=== PATIENT | female | born 1985 | race Caucasian/White ===

== ENCOUNTER 2019-06-12 06:07 | Inpatient (IN) | payer SELFPAY ==
--- NOTE | 2019-06-12 06:31 | EDM.PDOC ---
ED HPI GENERAL MEDICAL PROBLEM - General Chief Complaint: APARTMENT LOCATOR Problem Stated Complaint: 18 WKS , LOSING FLUID Time Seen by Provider: 06/12/19 06:26 Source of Information: Reports: Patient History Limitations: Reports: No Limitations - History of Present Illness INITIAL COMMENTS - FREE TEXT/NARRATIVE: 33-year-old female presents to the emergency room with a chief complaint of waking from sleep with a gush of fluids patient then called her APARTMENT LOCATOR physician and was instructed to put on a pad and come to the emergency room if the pad gets wet. Patient states she saturated 2 pads and came to the emergency room. Patient denies any bleeding, pain, and/or fever. The patient states she has minimal cramping and still feels movement at this time. Patient is approximately 18 weeks on Friday. She is G6, P4 Ab2. Patient is in no distress at this time and has no active bleeding or fluid loss. OB has been called for an AmniSure exam. Onset: Today Duration: Hour(s): (3), Resolved Prior to Arrival Location: Reports: Pelvis Quality: Reports: Other (MinimalCramps) Worsens with: Reports: None Associated Symptoms: Reports: No Other Symptoms. Denies: Confusion, Chest Pain , Cough, Diaphoresis, Fever/Chills, Headaches, Loss of Appetite, Nausea/Vomiting , Rash, Seizure, Shortness of Breath pelvic Pain Score (Numeric/FACES): 2 - Related Data Allergies Allergy/AdvReac Type Severity Reaction Status Date / Time No Known Allergies Allergy Verified 06/12/19 12:05 Home Meds: Home Meds Lysine 1,000 mg PO DAILY 06/12/19 [History] Mv-Mn/Iron/FA/Herbal/Digestive [ One Tablet] 1 tab PO DAILY 06/12/19 [ History] Past Medical History HEENT History: Reports: None Cardiovascular History: Reports: None Respiratory History: Reports: None Gastrointestinal History: Reports: None Genitourinary History: Reports: None APARTMENT LOCATOR History: Reports: Musculoskeletal History: Reports: None Neurological History: Reports: None Psychiatric History: Reports: None Endocrine/Metabolic History: Reports: None Hematologic History: Reports: None Immunologic History: Reports: None Oncologic (Cancer) History: Reports: None Dermatologic History: Reports: None - Past Surgical History Head Surgeries/Procedures: Reports: None Social & Family History - Family History Family Medical History: Noncontributory - Tobacco Use Smoking Status *Q: Never Smoker - Recreational Drug Use Recreational Drug Use: No ED ROS GENERAL - Review of Systems Review Of Systems: See Below Constitutional: Reports: No Symptoms. Denies: Fever, Chills, Malaise, Weakness , Fatigue, Night Sweats, Diaphoresis, Decreased Appetite HEENT: Reports: No Symptoms. Denies: Contact Lenses, Dental Pain, Ear Discharge , Eye Discharge, Eye Pain, Glasses, Hearing Loss Respiratory: Reports: No Symptoms. Denies: Shortness of Breath, Wheezing, Pleuritic Chest Pain, Cough, Sputum, Hemoptysis Cardiovascular: Reports: No Symptoms. Denies: Chest Pain, Blood Pressure Problem, Dyspnea on Exertion, Edema, Lightheadedness Endocrine: Reports: No Symptoms. Denies: Fatigue, High Glucose, Low Glucose GI/Abdominal: Reports: No Symptoms. Denies: Abdominal Pain, Anorexia, Black Stool, Diarrhea, Decreased Appetite, Flatus, Hematemesis, Nausea, Stool Incontinence : Reports: No Symptoms. Denies: Discharge Musculoskeletal: Reports: No Symptoms. Denies: Neck Pain, Shoulder Pain Skin: Reports: No Symptoms, Cyanosis, Jaundice Neurological: Reports: No Symptoms. Denies: Confusion, Dizziness, Pre-Existing Deficit, Seizure Psychiatric: Reports: No Symptoms. Denies: Agitation, Anxiety, Confusion Hematologic/Lymphatic: Reports: No Symptoms. Denies: Anemia, Easy Bleeding Immunologic: Reports: No Symptoms. Denies: Anaphylaxis, Food Allergy, Seasonal Allergy, Grass Allergy ED EXAM - Physical Exam Exam: See Below Text/Narrative:: 33-year-old female results show white count of 12 H&H is normal. She is positive for membranes being ruptured. At this time she is still an ultrasound Exam Limited By: No Limitations General Appearance: Alert, WD/WN, No Apparent Distress, Mild Distress, Moderate Distress, Cachetic Eye Exam: Bilateral Eye: Normal Fundi, Normal Inspection Ears: Normal External Exam, Normal Canal, Normal TMs Nose: Normal Inspection, Normal Mucosa Throat/Mouth: Normal Inspection, Normal Lips, Normal Teeth, Normal Oropharynx, Normal Voice Head: Atraumatic, Normocephalic Neck: Normal Inspection, Supple, Non-Tender Respiratory/Chest: No Respiratory Distress, Lungs Clear, Normal Breath Sounds, No Accessory Muscle Use, Chest Non-Tender Cardiovascular: Normal Peripheral Pulses, Regular Rate, Rhythm, No JVD, No Murmur, No Rub GI/Abdominal Exam: Normal Bowel Sounds, Soft, Non-Tender, No Organomegaly, No Distention, No Abnormal Bruit Back Exam: Normal Inspection, Full Range of Motion Extremities: Normal Inspection, Normal Range of Motion, No Pedal Edema, Normal Capillary Refill Neurological: Alert, Oriented, CN II-XII Intact, Normal Reflexes, No Motor/ Sensory Deficits Psychiatric: Normal Affect, Normal Mood Skin Exam: Warm, Dry, Intact, Normal Color Lymphatic: No Adenopathy Course - Vital Signs Text/Narrative:: Patient's ultrasound shows a 17-week 2-day fetus with a heart rate of 148. Amniotic fluid index is low at 8.6. Patient is in no acute pain at this time. Dr. Boucher [facility] on-call was called she will be evaluating the patient for possible admission. I will discuss this with the patient. Last Recorded V/S: Last Vital Signs Temp 96.9 F 06/12/19 16:00 Pulse 81 06/12/19 16:00 Resp 15 06/12/19 16:00 BP 114/65 06/12/19 16:00 Pulse Ox 97 06/12/19 16:00 - Orders/Labs/Meds Orders: Active Orders 24 hr Category Date Time Status Sodium Chloride 0.9% [Normal Saline] 1,000 ml Med 06/12/19 08:00 Active IV ASDIRECTED Medication Orders Sodium Chloride (Normal Saline) 1,000 mls @ 125 mls/hr IV ASDIRECTED [facility] Last Admin: 06/12/19 08:26 Dose: 125 mls/hr Lactated Ringer's (Ringers, Lactated) 1,000 mls @ 125 mls/hr IV ASDIRECTED [facility] Erythromycin Lactobionate 500 (mg/ Sodium Chloride) 100 mls @ 100 mls/hr IV Q6H [facility] Last Admin: 06/12/19 15:38 Dose: 100 mls/hr Infusion: 06/12/19 10:50 Dose: 100 mls/hr Admin: 06/12/19 09:50 Dose: 100 mls/hr Ampicillin Sodium 1 gm/ Sodium (Chloride) 50 mls @ 100 mls/hr IV Q6H [facility] Last Admin: 06/12/19 17:44 Dose: 100 mls/hr Infusion: 06/12/19 12:12 Dose: 100 mls/hr Admin: 06/12/19 11:42 Dose: 100 mls/hr Prenat Multivit/[place]/Iron/Folic Ac ( Mtr) 1 each PO DAILY [facility] Last Admin: 06/12/19 10:23 Dose: 1 each Sodium Chloride (Saline Flush) 10 ml FLUSH ASDIRECTED PRN PRN Reason: Keep Vein Open Sodium Chloride (Saline Flush) 2.5 ml FLUSH ASDIRECTED PRN PRN Reason: Keep Vein Open Labs: Laboratory Tests 06/12/19 06/12/19 06/12/19 Range/Units 06:30 06:35 06:35 WBC 12.98 H (4.0-11.0) K/uL RBC 3.82 L (4.30-5.90) M/uL Hgb 11.2 L (12.0-16.0) g/dL Hct 34.1 L (36.0-46.0) % MCV 89.3 (80.0-98.0) fL MCH 29.3 (27.0-32.0) pg MCHC 32.8 (31.0-37.0) g/dL RDW Std Deviation 43.9 (28.0-62.0) fl RDW Coeff of Bia 13 (11.0-15.0) % Plt Count 173 (150-400) K/uL MPV 9.70 (7.40-12.00) fL Neut % (Auto) 87.4 H (48.0-80.0) % Lymph % (Auto) 8.8 L (16.0-40.0) % [place] % (Auto) 3.4 (0.0-15.0) % Eos % (Auto) 0.2 (0.0-7.0) % Baso % (Auto) 0.2 (0.0-1.5) % Neut # (Auto) 11.4 H (1.4-5.7) K/uL Lymph # (Auto) 1.1 (0.6-2.4) K/uL [place] # (Auto) 0.4 (0.0-0.8) K/uL Eos # (Auto) 0.0 (0.0-0.7) K/uL Baso # (Auto) 0.0 (0.0-0.1) K/uL Nucleated RBC % 0.0 /100WBC Nucleated RBCs # 0 K/uL Sodium 140 (136-145) mmol/L Potassium 3.5 (3.5-5.1) mmol/L Chloride 105 (98-107) mmol/L Carbon Dioxide 23.4 (21.0-32.0) mmol/L BUN 6 L (7.0-18.0) mg/dL Creatinine 0.5 L (0.6-1.0) mg/dL Est Cr Clr Drug Dosing 129.91 mL/min Estimated GFR (MDRD) > 60.0 ml/min Glucose 78 (74-106) mg/dL Calcium 8.6 (8.5-10.1) mg/dL Total Bilirubin 0.3 (0.2-1.0) mg/dL AST 15 (15-37) IU/L ALT 29 (14-63) IU/L Alkaline Phosphatase 60 (46-116) U/L Total Protein 6.9 (6.4-8.2) g/dL Albumin 2.8 L (3.4-5.0) g/dL Globulin 4.1 H (2.6-4.0) g/dL Albumin/Globulin Ratio 0.7 L (0.9-1.6) HCG, Quant mIU/mL Urine Color Urine Appearance Urine pH (5.0-8.0) Ur Specific [place] (1.001-1.035) Urine Protein (NEGATIVE) mg/dL Urine Glucose (UA) (NEGATIVE) mg/dL Urine Ketones (NEGATIVE) mg/dL Urine Occult Blood (NEGATIVE) Urine Nitrite (NEGATIVE) Urine Bilirubin (NEGATIVE) Urine Urobilinogen (<2.0) EU/dL Ur Leukocyte Esterase (NEGATIVE) Urine RBC (0-2/HPF) Urine WBC (0-5/HPF) Ur Epithelial Cells (NONE-FEW) Urine Bacteria (NEGATIVE) Membrane Rupture POSITIVE Mila species DNA (NEGATIVE) Gardnerella DNA Probe (NEGATIVE) Trichomonas DNA Probe (NEGATIVE) Blood Type 06/12/19 06/12/19 06/12/19 Range/Units 06:35 06:35 08:05 WBC (4.0-11.0) K/uL RBC (4.30-5.90) M/uL Hgb (12.0-16.0) g/dL Hct (36.0-46.0) % MCV (80.0-98.0) fL MCH (27.0-32.0) pg MCHC (31.0-37.0) g/dL RDW Std Deviation (28.0-62.0) fl RDW Coeff of Bia (11.0-15.0) % Plt Count (150-400) K/uL MPV (7.40-12.00) fL Neut % (Auto) (48.0-80.0) % Lymph % (Auto) (16.0-40.0) % [place] % (Auto) (0.0-15.0) % Eos % (Auto) (0.0-7.0) % Baso % (Auto) (0.0-1.5) % Neut # (Auto) (1.4-5.7) K/uL Lymph # (Auto) (0.6-2.4) K/uL [place] # (Auto) (0.0-0.8) K/uL Eos # (Auto) (0.0-0.7) K/uL Baso # (Auto) (0.0-0.1) K/uL Nucleated RBC % /100WBC Nucleated RBCs # K/uL Sodium (136-145) mmol/L Potassium (3.5-5.1) mmol/L Chloride (98-107) mmol/L Carbon Dioxide (21.0-32.0) mmol/L BUN (7.0-18.0) mg/dL Creatinine (0.6-1.0) mg/dL Est Cr Clr Drug Dosing mL/min Estimated GFR (MDRD) ml/min Glucose (74-106) mg/dL Calcium (8.5-10.1) mg/dL Total Bilirubin (0.2-1.0) mg/dL AST (15-37) IU/L ALT (14-63) IU/L Alkaline Phosphatase (46-116) U/L Total Protein (6.4-8.2) g/dL Albumin (3.4-5.0) g/dL Globulin (2.6-4.0) g/dL Albumin/Globulin Ratio (0.9-1.6) HCG, Quant 15064.0 mIU/mL Urine Color Urine Appearance Urine pH (5.0-8.0) Ur Specific [place] (1.001-1.035) Urine Protein (NEGATIVE) mg/dL Urine Glucose (UA) (NEGATIVE) mg/dL Urine Ketones (NEGATIVE) mg/dL Urine Occult Blood (NEGATIVE) Urine Nitrite (NEGATIVE) Urine Bilirubin (NEGATIVE) Urine Urobilinogen (<2.0) EU/dL Ur Leukocyte Esterase (NEGATIVE) Urine RBC (0-2/HPF) Urine WBC (0-5/HPF) Ur Epithelial Cells (NONE-FEW) Urine Bacteria (NEGATIVE) Membrane Rupture Mila species DNA NEGATIVE (NEGATIVE) Gard[place]rella DNA Probe NEGATIVE (NEGATIVE) Trichomonas DNA Probe NEGATIVE (NEGATIVE) Blood Type A NEGATIVE 06/12/19 Range/Units 08:22 WBC (4.0-11.0) K/uL RBC (4.30-5.90) M/uL Hgb (12.0-16.0) g/dL Hct (36.0-46.0) % MCV (80.0-98.0) fL MCH (27.0-32.0) pg MCHC (31.0-37.0) g/dL RDW Std Deviation (28.0-62.0) fl RDW Coeff of Bia (11.0-15.0) % Plt Count (150-400) K/uL MPV (7.40-12.00) fL Neut % (Auto) (48.0-80.0) % Lymph % (Auto) (16.0-40.0) % [place] % (Auto) (0.0-15.0) % Eos % (Auto) (0.0-7.0) % Baso % (Auto) (0.0-1.5) % Neut # (Auto) (1.4-5.7) K/uL Lymph # (Auto) (0.6-2.4) K/uL [place] # (Auto) (0.0-0.8) K/uL Eos # (Auto) (0.0-0.7) K/uL Baso # (Auto) (0.0-0.1) K/uL Nucleated RBC % /100WBC Nucleated RBCs # K/uL Sodium (136-145) mmol/L Potassium (3.5-5.1) mmol/L Chloride (98-107) mmol/L Carbon Dioxide (21.0-32.0) mmol/L BUN (7.0-18.0) mg/dL Creatinine (0.6-1.0) mg/dL Est Cr Clr Drug Dosing mL/min Estimated GFR (MDRD) ml/min Glucose (74-106) mg/dL Calcium (8.5-10.1) mg/dL Total Bilirubin (0.2-1.0) mg/dL AST (15-37) IU/L ALT (14-63) IU/L Alkaline Phosphatase (46-116) U/L Total Protein (6.4-8.2) g/dL Albumin (3.4-5.0) g/dL Globulin (2.6-4.0) g/dL Albumin/Globulin Ratio (0.9-1.6) HCG, Quant mIU/mL Urine Color YELLOW Urine Appearance CLEAR Urine pH 8.0 (5.0-8.0) Ur Specific [place] 1.015 (1.001-1.035) Urine Protein NEGATIVE (NEGATIVE) mg/dL Urine Glucose (UA) NEGATIVE (NEGATIVE) mg/dL Urine Ketones NEGATIVE (NEGATIVE) mg/dL Urine Occult Blood NEGATIVE (NEGATIVE) Urine Nitrite NEGATIVE (NEGATIVE) Urine Bilirubin NEGATIVE (NEGATIVE) Urine Urobilinogen 0.2 (<2.0) EU/dL Ur Leukocyte Esterase NEGATIVE (NEGATIVE) Urine RBC NONE SEEN (0-2/HPF) Urine WBC NONE SEEN (0-5/HPF) Ur Epithelial Cells RARE (NONE-FEW) Urine Bacteria NOT SEEN (NEGATIVE) Membrane Rupture Mila species DNA (NEGATIVE) [place] DNA Probe (NEGATIVE) Trichomonas DNA Probe (NEGATIVE) Blood Type Meds: Medications Generic Name Dose Route Start Last Admin Trade Name Freq PRN Reason Stop Dose Admin Sodium Chloride 1,000 mls @ 125 mls/hr 06/12/19 08:00 06/12/19 08:26 Normal Saline IV 125 mls/hr ASDIRECTED [facility] Administration Lactated Ringer's 1,000 mls @ 125 mls/hr 06/12/19 09:00 Ringers, Lactated IV ASDIRECTED [facility] Erythromycin Lactobionate 500 100 mls @ 100 mls/hr 06/12/19 09:30 06/12/19 15 :38 mg/ Sodium Chloride IV 100 mls/hr Q6H [facility] Administration Ampicillin Sodium 1 gm/ Sodium 50 mls @ 100 mls/hr 06/12/19 11:00 06/12/19 17 :44 Chloride IV 100 mls/hr Q6H [facility] Administration Prenat Multivit/Patient Resource Coordinator/Iron/Folic Ac 1 each 06/12/19 09:00 06/12/19 10:23 Mtr PO 1 each DAILY [facility] Administration Sodium Chloride 10 ml 06/12/19 08:56 Saline Flush FLUSH ASDIRECTED PRN Keep Vein Open Sodium Chloride 2.5 ml 06/12/19 08:56 Saline Flush FLUSH ASDIRECTED PRN Keep Vein Open Discontinued Medications Generic Name Dose Route Start Last Admin Trade Name Freq PRN Reason Stop Dose Admin Cefazolin Sodium/Dextrose 1 gm 50 mls @ 100 mls/hr 06/12/19 07:50 06/12/19 08 :26 / Premix IV 06/12/19 08:19 100 mls/hr ONETIME ONE Administration Ampicillin Sodium 1 gm/ Sodium 50 mls @ 100 mls/hr 06/12/19 09:00 06/12/19 11 :43 Chloride IV Not Given Q6H [facility] Erythromycin Lactobionate 500 100 mls @ 100 mls/hr 06/12/19 09:00 06/12/19 11 :44 mg/ Sodium Chloride IV Not Given Q6HR [facility] Departure - Departure Time of Disposition: 09:20 Disposition: Admitted As Inpatient 64 Condition: Fair Clinical Impression: Threatened - Discharge Information Sepsis Event Note - Evaluation Sepsis Screening Result: No Definite Risk - Focused Exam Vital Signs: Vital Signs Temp Pulse Resp BP Pulse Ox 06/12/19 08:31 98.0 F 81 18 108/40 L 98 Date Exam was Performed: 06/12/19 Time Exam was Performed: 19:17 - My Orders Last 24 Hours: My Active Orders 06/12/19 08:00 Sodium Chloride 0.9% [Normal Saline] 1,000 ml IV ASDIRECTED - Assessment/Plan Last 24 Hours: My Active Orders 06/12/19 08:00 Sodium Chloride 0.9% [Normal Saline] 1,000 ml IV ASDIRECTED
[2019-06-12 07:22] LABS: BLOOD UREA NITROGEN,BUN 6 mg/dL (7.0-18.0); CARBON DIOXIDE,CO2 23.4 mmol/L (21.0-32.0); CHLORIDE,CL 105 mmol/L (98-107); GLUCOSE RANDOM 78 mg/dL (74-106); POTASSIUM,K 3.5 mmol/L (3.5-5.1); SODIUM,NA 140 mmol/L (136-145)
--- NOTE | 2019-06-12 07:28 | US ---
Limited obstetrical ultrasound: Multiple real-time images were obtained transabdominally. Comparison: No previous study for current . Dates: Current ultrasound: [facility] 11/14/19, gestational age 17 weeks 6 days Single intrauterine fetus is seen. Amniotic fluid: GM 8.7 cm Heart rate: 148 bpm Placenta: Complete placenta previa Impression: 1. Single intrauterine fetus. Dates as noted above. 2. Amniotic fluid index of 8.7 cm which is low normal. 3. Complete placenta previa Diagnostic code #3 This report was dictated in [place] Standard Time
[2019-06-12] MEDS ORDERED: ceFAZolin 1 GM in Premix Bag 1 BAG IV ONE (07:50)
[2019-06-12] MEDS: Sodium Chloride 0.9% 1,000 ML IV SCH ×2 (08:26→21:09)
[2019-06-12] MEDS ORDERED: Sodium Chloride 0.9% 2.5 ML Syringe FLUSH PRN (08:56)
[2019-06-12] MEDS ORDERED: Sodium Chloride 0.9% 10 ML Syringe FLUSH PRN (08:56)
[2019-06-12] MEDS ORDERED: Lactated Ringers 1,000 ML IV SCH (09:00)
[2019-06-12] MEDS ORDERED: Ampicillin 1 GM in Sodium Chloride 0.9% 50 ML IV SCH (09:00)
[2019-06-12] MEDS: Prenatal Multivitamin and Multimineral with Iron Tab PO SCH (10:23)
[2019-06-12] MEDS: Ampicillin 1 GM in Sodium Chloride 0.9% 50 ML IV SCH ×3 (11:42→23:02)
[2019-06-13] MEDS: Ampicillin 1 GM in Sodium Chloride 0.9% 50 ML IV SCH ×4 (05:14→22:48)
[2019-06-13] MEDS: Sodium Chloride 0.9% 1,000 ML IV SCH ×3 (05:56→21:16)
[2019-06-13] MEDS: Prenatal Multivitamin and Multimineral with Iron Tab PO SCH (09:26)
[2019-06-13] MEDS ORDERED: Docusate Sodium 100 MG Cap PO PRN (09:45)
--- NOTE | 2019-06-13 09:50 | PCM.PN ---
- General Info Date of Service: 06/13/19 Subjective Update: Still leaking small amount of fluid, occasional cramping when she turns on her side. Denies any vaginal bleeding. Denies chills or myalgia Functional Status: Reports: Pain Controlled, Tolerating Diet, Urinating - Review of Systems General: Reports: No Symptoms HEENT: Reports: No Symptoms Pulmonary: Reports: No Symptoms Cardiovascular: Reports: No Symptoms Gastrointestinal: Reports: No Symptoms Genitourinary: Reports: No Symptoms Musculoskeletal: Reports: No Symptoms Skin: Reports: No Symptoms Neurological: Reports: No Symptoms Psychiatric: Reports: No Symptoms - Patient Data Vitals - Most Recent: Last Vital Signs Temp 36.6 C 06/13/19 04:30 Pulse 83 06/13/19 04:30 Resp 18 06/13/19 04:30 BP 112/69 06/13/19 04:30 Pulse Ox 96 06/13/19 04:30 Weight - Most Recent: 73.936 kg I&O - Last 24 Hours: Intake & Output 06/12/19 06/13/19 06/13/19 22:59 06:59 14:59 Intake Total 915 2347 Output Total 1425 425 600 Balance -510 1922 -600 Lab Results Last 24 Hours: Laboratory Results - last 24 hr 06/13/19 Range/Units 09:22 WBC 12.51 H (4.0-11.0) K/uL RBC 3.45 L (4.30-5.90) M/uL Hgb 10.3 L (12.0-16.0) g/dL Hct 31.2 L (36.0-46.0) % MCV 90.4 (80.0-98.0) fL MCH 29.9 (27.0-32.0) pg MCHC 33.0 (31.0-37.0) g/dL RDW Std Deviation 45.3 (28.0-62.0) fl RDW Coeff of Bia 14 (11.0-15.0) % Plt Count 168 (150-400) K/uL MPV 9.80 (7.40-12.00) fL Neut % (Auto) 84.9 H (48.0-80.0) % Lymph % (Auto) 10.8 L (16.0-40.0) % [place] % (Auto) 3.8 (0.0-15.0) % Eos % (Auto) 0.4 (0.0-7.0) % Baso % (Auto) 0.1 (0.0-1.5) % Neut # (Auto) 10.6 H (1.4-5.7) K/uL Lymph # (Auto) 1.4 (0.6-2.4) K/uL [place] # (Auto) 0.5 (0.0-0.8) K/uL Eos # (Auto) 0.1 (0.0-0.7) K/uL Baso # (Auto) 0.0 (0.0-0.1) K/uL Nucleated RBC % 0.0 /100WBC Nucleated RBCs # 0 K/uL Med Orders - Current: Current Medications Docusate Sodium (Colace) 100 mg PO BID PRN PRN Reason: Constipation Ferrous Sulfate (Ferrous Sulfate) 300 mg PO DAILY [facility] Sodium Chloride (Normal Saline) 1,000 mls @ 125 mls/hr IV ASDIRECTED [facility] Last Admin: 06/13/19 05:56 Dose: 125 mls/hr Lactated Ringer's (Ringers, Lactated) 1,000 mls @ 125 mls/hr IV ASDIRECTED [facility] Erythromycin Lactobionate 500 (mg/ Sodium Chloride) 100 mls @ 100 mls/hr IV Q6H [facility] Last Admin: 06/13/19 09:29 Dose: 100 mls/hr Ampicillin Sodium 1 gm/ Sodium (Chloride) 50 mls @ 100 mls/hr IV Q6H [facility] Last Admin: 06/13/19 05:14 Dose: 100 mls/hr Prenat Multivit/[place]/Iron/Folic Ac ( Mtr) 1 each PO DAILY [facility] Last Admin: 06/13/19 09:26 Dose: 1 each Sodium Chloride (Saline Flush) 10 ml FLUSH ASDIRECTED PRN PRN Reason: Keep Vein Open Sodium Chloride (Saline Flush) 2.5 ml FLUSH ASDIRECTED PRN PRN Reason: Keep Vein Open Discontinued Medications Cefazolin Sodium/Dextrose 1 gm (/ Premix) 50 mls @ 100 mls/hr IV ONETIME ONE Stop: 06/12/19 08:19 Last Admin: 06/12/19 08:26 Dose: 100 mls/hr Ampicillin Sodium 1 gm/ Sodium (Chloride) 50 mls @ 100 mls/hr IV Q6H [facility] Last Admin: 06/12/19 11:43 Dose: Not Given Erythromycin Lactobionate 500 (mg/ Sodium Chloride) 100 mls @ 100 mls/hr IV Q6HR [facility] Last Admin: 06/12/19 11:44 Dose: Not Given - Exam General: Alert HEENT: Pupils Equal, Pupils Reactive, EOMI, Mucous Membr. Moist/[place] Neck: Supple Lungs: Clear to Auscultation, Normal Respiratory Effort Cardiovascular: Regular Rate, Regular Rhythm GI/Abdominal Exam: Soft, Non-Tender, Other (uterine fundus U-2 non tender) Extremities: Normal Inspection, Non-Tender, No Pedal Edema Sepsis Event Note - Evaluation Sepsis Screening Result: No Definite Risk - Focused Exam Vital Signs: Vital Signs Temp Pulse Resp BP Pulse Ox 06/13/19 04:30 36.6 C 83 18 112/69 96 Date Exam was Performed: 06/13/19 Time Exam was Performed: 09:47 - Problem List & Annotations (1) premature rupture of membranes (PPROM) with unknown onset of labor SNOMED Code(s): 73983963336489211 Code(s): O42.919 - PRETRM ALPHONSO ROM, UNSP TIME BETW RUPT AND ONST LABR, UNSP TRI Status: Acute Current Visit: Yes (2) Threatened SNOMED Code(s): 80983102 Code(s): O20.0 - THREATENED Status: Acute Current Visit: Yes - Problem List Review Problem List Initiated/Reviewed/Updated: Yes - My Orders Last 24 Hours: My Active Orders 06/12/19 08:56 Bedrest Bathroom Privileges [RC] ASDIRECTED Sodium Chloride 0.9% [Saline Flush] 10 ml FLUSH ASDIRECTED PRN Sodium Chloride 0.9% [Saline Flush] 2.5 ml FLUSH ASDIRECTED PRN Saline Lock Insert [OM.PC] Routine Sequential Compression Device [OM.PC] Routine 06/12/19 08:58 Antiembolic Devices [RC] PER UNIT ROUTINE Monitoring [RC] DAILY 06/12/19 09:00 Lactated Ringers [Ringers, Lactated] 1,000 ml IV ASDIRECTED Vit/FA/Fe Fumarate/Se [ MTR] 1 each PO DAILY 06/12/19 09:30 Erythromycin Lactobionate [Erythrocin Lactobionate] 500 mg Sodium Chloride 0.9 % [Normal Saline] 100 ml IV Q6H 06/12/19 11:00 Ampicillin 1 gm Sodium Chloride 0.9% [Normal Saline] 50 ml IV Q6H 06/12/19 Lunch Regular Diet [DIET] 06/13/19 09:45 Docusate Sodium [Colace] 100 mg PO BID PRN 06/13/19 10:00 Ferrous Sulfate 300 mg PO DAILY 06/15/19 05:11 CBC WITH AUTO DIFF [HEME] AM - Assessment Assessment:: 18 weeks with PPROM with placenta previa afebrile, no signs of labor or infections at this time. Anemic on labs today. - Plan Plan:: Continue with IV antibiotics for 48 hours. Recheck CBC in am, discharge in am if stable to consult with MFM. Start iron for anemia, with colace if needed.
[2019-06-13] MEDS ORDERED: Ferrous Sulfate Liq 300 MG/5 ML Cup PO SCH (10:00)
[2019-06-14] MEDS: Ampicillin 1 GM in Sodium Chloride 0.9% 50 ML IV SCH (05:04)
[2019-06-14] MEDS: Sodium Chloride 0.9% 1,000 ML IV SCH (05:43)
--- NOTE | 2019-06-14 08:31 | HP ---
DATE OF : 1985 PRIMARY CARE PHYSICIAN: None PCP CHIEF COMPLAINT: Spontaneous rupture of membranes. HISTORY: This is a 33-year-old female, G6, P 3-0-2-3, at 17-6/7 weeks' gestation, EDC of 11/14/2019 by LMP consistent with a 13-week ultrasound. She presents having gotten up in the middle of the night with a gush of fluid. She put on a pad. She walked around. She continued to have fluid leakage. She has had no bleeding. No cramping or pain. No fevers or chills. No abnormal discharge prior to the leakage of fluid. She presented to the emergency room with findings of clear fluid. AmniSure was obtained and was positive. Ultrasound was obtained and showed a single intrauterine . Amniotic fluid of 8.7. Complete placenta previa. PAST MEDICAL HISTORY: Positive for gastritis, cholelithiasis, and cold sores. PAST SURGICAL HISTORY: Vaginal surgery for removal of a sheath. She had an abnormal Pap in 2010 that did not require treatment. ALLERGIES: None known. MEDICATIONS: vitamins and lysine. SOCIAL HISTORY: She is , sexually active. She denies use of tobacco, alcohol, or street drugs. FAMILY HISTORY: Her father has hypertension. Paternal grandfather with emphysema and type 2 diabetes. Paternal grandmother with breast cancer. OB HISTORY: In 2010, she had a 6-pound 6-ounce female, vaginal delivery. In 2013, she had a 6-pound 7-ounce male, vaginal delivery. In 2015, she had an 8-pound 3-ounce female, vaginal delivery. She had spontaneous without D and C in October of 2018 and January of 2019. Her LMP for this is February 07, 2019, dating based on ultrasound on 05/10/2019, giving a confirming EDC of 11/14/2019. labs include blood type A negative, Rubella immune, RPR negative, hepatitis B negative. REVIEW OF SYSTEMS: HEENT: Negative for headache or visual changes. CHEST: Negative for shortness of breath, chest pain. DERMATOLOGIC: Negative. RHEUMATOLOGIC: Negative. GASTROINTESTINAL: Negative. GENITOURINARY: Negative except for HPI. PHYSICAL EXAMINATION: VITAL SIGNS: Temperature is 36.3, pulse is 74, blood pressure 124/63, respiratory rate of 16, O2 saturation 98%. GENERAL: She is alert and oriented. She is in no acute distress. NECK: Supple without lymphadenopathy or thyromegaly. LUNGS: Clear bilaterally. CARDIOVASCULAR: Regular rate without murmur. ABDOMEN: Soft, gravid, and nontender. Fundus is 2 cm below the umbilicus, is nontender. EXTREMITIES: Show no edema. GENITOURINARY: External genitalia appears normal. Sterile speculum exam reveals clear fluid in the vagina. The cervix is visually closed. There is no bleeding. ASSESSMENT: A 17-6/7 weeks' intrauterine with premature rupture of membranes. I did discuss the implications of premature rupture of membranes at this time of including lack of amniotic fluid causing pulmonary hypoplasia, risk of continuing with with an extremely delivery with a child with long-term disabilities, and risk of maternal sepsis. Options are: 1. Expectant management, as long as the fetus is viable, and she is afebrile. This would include IV antibiotics with erythromycin and ampicillin and follow up with Maternal- Medicine on Friday, which is her preference. 2. Next option would be induction of labor, which is somewhat more complicated related to her placenta previa. 3. The final option, which she completely declines, would be dilation and evacuation, which would have to be done elsewhere, as that is not an acceptable procedure in our facility with a viable fetus. Understanding all these options, she does desire to proceed with inpatient admission with IV antibiotics, converting to oral antibiotics after 48 hours with Maternal- Medicine consultation on Friday. I did make contact with Dr. Vicente, and he agreed to see her on Friday with ultrasound and further counseling at that time. VASILIY / IMAN /[id number]
--- NOTE | 2019-06-14 08:49 | PCM.PN ---
- General Info Date of Service: 06/14/19 Functional Status: Reports: Tolerating Diet, Ambulating, Urinating, Other ( Denies fever and chills, no cramping or abdominal pain. ) - Review of Systems General: Reports: No Symptoms HEENT: Reports: No Symptoms Pulmonary: Reports: No Symptoms Cardiovascular: Reports: No Symptoms Gastrointestinal: Reports: No Symptoms Genitourinary: Reports: No Symptoms Musculoskeletal: Reports: No Symptoms Skin: Reports: No Symptoms Neurological: Reports: No Symptoms Psychiatric: Reports: No Symptoms - Patient Data Vitals - Most Recent: Last Vital Signs Temp 36.5 C 06/14/19 05:13 Pulse 69 06/14/19 05:13 Resp 16 06/14/19 05:13 BP 111/60 06/14/19 05:13 Pulse Ox 96 06/14/19 05:13 Weight - Most Recent: 163 lb I&O - Last 24 Hours: Intake & Output 06/13/19 06/14/19 06/14/19 22:59 06:59 14:59 Intake Total 1100 Output Total 1800 650 Balance -700 -650 Lab Results Last 24 Hours: Laboratory Results - last 24 hr 06/13/19 Range/Units 09:22 WBC 12.51 H (4.0-11.0) K/uL RBC 3.45 L (4.30-5.90) M/uL Hgb 10.3 L (12.0-16.0) g/dL Hct 31.2 L (36.0-46.0) % MCV 90.4 (80.0-98.0) fL MCH 29.9 (27.0-32.0) pg MCHC 33.0 (31.0-37.0) g/dL RDW Std Deviation 45.3 (28.0-62.0) fl RDW Coeff of Bia 14 (11.0-15.0) % Plt Count 168 (150-400) K/uL MPV 9.80 (7.40-12.00) fL Neut % (Auto) 84.9 H (48.0-80.0) % Lymph % (Auto) 10.8 L (16.0-40.0) % Archuleta % (Auto) 3.8 (0.0-15.0) % Eos % (Auto) 0.4 (0.0-7.0) % Baso % (Auto) 0.1 (0.0-1.5) % Neut # (Auto) 10.6 H (1.4-5.7) K/uL Lymph # (Auto) 1.4 (0.6-2.4) K/uL Archuleta # (Auto) 0.5 (0.0-0.8) K/uL Eos # (Auto) 0.1 (0.0-0.7) K/uL Baso # (Auto) 0.0 (0.0-0.1) K/uL Nucleated RBC % 0.0 /100WBC Nucleated RBCs # 0 K/uL Med Orders - Current: Current Medications Docusate Sodium (Colace) 100 mg PO BID PRN PRN Reason: Constipation Ferrous Sulfate (Ferrous Sulfate) 300 mg PO DAILY [facility] Last Admin: 06/13/19 11:11 Dose: 300 mg Sodium Chloride (Normal Saline) 1,000 mls @ 125 mls/hr IV ASDIRECTED [facility] Last Admin: 06/14/19 05:43 Dose: 125 mls/hr Lactated Ringer's (Ringers, Lactated) 1,000 mls @ 125 mls/hr IV ASDIRECTED [facility] Erythromycin Lactobionate 500 (mg/ Sodium Chloride) 100 mls @ 100 mls/hr IV Q6H [facility] Last Admin: 06/14/19 02:54 Dose: 100 mls/hr Ampicillin Sodium 1 gm/ Sodium (Chloride) 50 mls @ 100 mls/hr IV Q6H [facility] Last Admin: 06/14/19 05:04 Dose: 100 mls/hr Prenat Multivit/[place]/Iron/Folic Ac ( Mtr) 1 each PO DAILY [facility] Last Admin: 06/13/19 09:26 Dose: 1 each Sodium Chloride (Saline Flush) 10 ml FLUSH ASDIRECTED PRN PRN Reason: Keep Vein Open Sodium Chloride (Saline Flush) 2.5 ml FLUSH ASDIRECTED PRN PRN Reason: Keep Vein Open Discontinued Medications Cefazolin Sodium/Dextrose 1 gm (/ Premix) 50 mls @ 100 mls/hr IV ONETIME ONE Stop: 06/12/19 08:19 Last Admin: 06/12/19 08:26 Dose: 100 mls/hr Ampicillin Sodium 1 gm/ Sodium (Chloride) 50 mls @ 100 mls/hr IV Q6H [facility] Last Admin: 06/12/19 11:43 Dose: Not Given Erythromycin Lactobionate 500 (mg/ Sodium Chloride) 100 mls @ 100 mls/hr IV Q6HR [facility] Last Admin: 06/12/19 11:44 Dose: Not Given - Exam General: Alert, Oriented, Cooperative, No Acute Distress HEENT: Pupils Equal, Pupils Reactive Neck: Supple, Trachea Midline Lungs: Normal Respiratory Effort GI/Abdominal Exam: Normal Bowel Sounds, Soft, Non-Tender Back Exam: Normal Inspection, Full Range of Motion Extremities: Normal Inspection, Normal Range of Motion, Non-Tender, No Pedal Edema Skin: Warm, Dry, Intact Wound/Incisions: Healing Well Neurological: No New Focal Deficit Psy/Mental Status: Alert, Normal Affect, Normal Mood Sepsis Event Note - Evaluation Sepsis Screening Result: No Definite Risk - Focused Exam Vital Signs: Vital Signs Temp Pulse Resp BP Pulse Ox 06/14/19 05:13 36.5 C 69 16 111/60 96 Date Exam was Performed: 06/14/19 Time Exam was Performed: 08:45 - Problem List Review Problem List Initiated/Reviewed/Updated: Yes - Assessment Assessment:: 18 weeks with PPROM with placenta previa afebrile, HD3 with no signs of labor or infections at this time. - Plan Plan:: Completed IV antibiotics for 48 hours. Will start PO amoxicillin. WBC stable at 12.6. Start iron for anemia, with colace if needed. Discharge today for consult with M.
== END 2019-06-14 09:05 | disposition home or self-care (01) | DRG 833 ==
LOC: MW.ED 06:07 → MW.OB 08:36
PROVIDERS: ADMIT Obstetrics & Gynecology; ATTEND Obstetrics & Gynecology
DX: O20.0 Threatened abortion (principal); O44.02 Complete placenta previa NOS or without hemorrhage, second trimester; O42.912 Preterm premature rupture of membranes, unspecified as to length of time between rupture and onset of labor, second trimester; O99.012 Anemia complicating pregnancy, second trimester; D64.9 Anemia, unspecified; Z3A.17 17 weeks gestation of pregnancy
CPT/HCPCS: 36415; 76805; 76805-26; 80053; 81001; 84112; 84702; 85025; 86900; 86901; 87480; 87510; 87660; 96365; 99285-25; A9270-GY; J0290; J0690; J1364; J7030; J7050

== ENCOUNTER 2019-07-07 16:17 | Inpatient (IN) | payer SELFPAY ==
--- NOTE | 2019-07-07 17:11 | PCM.LDHP ---
L&D History of Present Illness - General Date of Service: 07/07/19 Admit Problem/Dx: Patient Status Order with Admit Dx/Problem 07/07/19 16:20 Patient Status [ADT] Routine Admission Diagnosis/Problem Admission Diagnosis/Problem - History of Present Illness Introduction:: HPI: 33yo at 21w3d with Hx of PPROM at 18wks presenting with cord prolapse. STEFAN 12/04/2019 by LMP confirmed by 13wk1d ultrasound. Patient has been expectantly managing at home, did not have signs of infection or labor, completed a course of latency antibiotics. 2 hours ago she called reporting she felt loop of cord in her vagina, having intermittent cramping. +FHR confirmed on bedside sono. OBHx: x3 at term, SAB x2 PMHx: None PSHx: removal of vaginal sheath SH: Denies alcohol, smoking or recreational drug use All: NKDA - Related Data Allergies/Adverse Reactions: Allergies Allergy/AdvReac Type Severity Reaction Status Date / Time No Known Allergies Allergy Verified 06/12/19 12:05 Home Medications: Home Meds Lysine 1,000 mg PO DAILY 06/12/19 [History] Mv-Mn/Iron/FA/Herbal/Digestive [ One Tablet] 1 tab PO DAILY 06/12/19 [ History] Amoxicillin 250 mg PO Q8HR 5 Days #15 capsule 06/14/19 [Rx] Ferrous Sulfate [Iron] 325 mg PO DAILY #30 tablet 06/14/19 [Rx] Past Medical History HEENT History: Reports: None Cardiovascular History: Reports: None Respiratory History: Reports: None Gastrointestinal History: Reports: None Other Gastrointestinal History: Gall stones Genitourinary History: Reports: None ART SPECIALIST History: Reports: Other OB/BYN History: extra vaginal sheath removed at age 16 Musculoskeletal History: Reports: None Neurological History: Reports: None Psychiatric History: Reports: None Endocrine/Metabolic History: Reports: None Hematologic History: Reports: None Immunologic History: Reports: None Oncologic (Cancer) History: Reports: None Dermatologic History: Reports: None - Infectious Disease History Infectious Disease History: Reports: Chicken Pox - Past Surgical History Head Surgeries/Procedures: Reports: None Social & Family History - Family History Family Medical History: Noncontributory - Caffeine Use Caffeine Use: Reports: None H&P Review of Systems - Review of Systems: Review Of Systems: See Below General: Reports: No Symptoms HEENT: Reports: No Symptoms Pulmonary: Reports: No Symptoms Cardiovascular: Reports: No Symptoms Gastrointestinal: Reports: No Symptoms Genitourinary: Reports: No Symptoms Musculoskeletal: Reports: No Symptoms Skin: Reports: No Symptoms Psychiatric: Reports: No Symptoms Neurological: Reports: No Symptoms Hematologic/Lymphatic: Reports: No Symptoms Immunologic: Reports: No Symptoms L&D Exam - Exam Exam: See Below - Vital Signs Weight: 161 lb - OB Specific Heart Tones: Present Presentation: Vertex - Exam General: Alert, Oriented, Cooperative Neck: Supple, Trachea Midline Lungs: Normal Respiratory Effort GI/Abdominal Exam: Soft, Non-Tender, No Organomegaly, No Distention Genitourinary: Normal external exam, Other (loop of cord from the cervix, no vaginal bleeding) Back Exam: Normal Inspection Extremities: Normal Inspection, Normal Range of Motion, Non-Tender, No Pedal Edema Skin: Warm, Dry, Intact Neurological: Cranial Nerves Intact Psychiatric: Alert, Normal Affect, Normal Mood Problem List Initiated/Reviewed/Updated: Yes Orders Last 24hrs: Active Orders 24 hr Category Date Time Status Patient Status [ADT] Routine ADT 07/07/19 16:20 Active Up ad Kinga [RC] ASDIRECTED Care 07/07/19 16:29 Active Vital Signs [RC] PER UNIT ROUTINE Care 07/07/19 16:29 Active Resuscitation Status Routine Resus Stat 07/07/19 16:29 Ordered Assessment/Plan Comment:: 33yo @21w3d with PPROM at 18wk presenting with cord prolapse. - Discussed with patient that although there is cardiac activity currently , with cord prolapse demise is inevitable. She is also having cervical dilation and signs of labor. Reviewed options of expectant management vs induction of labor, baby is not likely to reach viability and with increasing risk of infection, would advise induction of labor. She is tearful but agreeable to induction. Case reviewed with Ethics team Jhony Roque, who was agreeable with plan of care considering previable PPROM and natural labor has started. - admission labs: CBC, T&S, RPR - ancef 2g q8hr for infection prophylaxis - cytotec 800mcg vaginal now, 400mg q4hr - pain control: dilaudid IV/epidural PRN
[2019-07-07] MEDS ORDERED: Carboprost Tromethamine 250 MCG/1 ML Amp IM PRN (17:22)
[2019-07-07] MEDS ORDERED: Sodium Chloride 0.9% 10 ML Syringe FLUSH PRN (17:22)
[2019-07-07] MEDS ORDERED: Lidocaine 1% 50 ML MDV INJECT PRN (17:22)
[2019-07-07] MEDS ORDERED: Sodium Chloride 0.9% 10 ML SDV IV PRN (17:22)
[2019-07-07] MEDS ORDERED: Nalbuphine 10 MG/1 ML Vial IVPUSH PRN (17:22)
[2019-07-07] MEDS ORDERED: Methylergonovine 0.2 MG/1 ML Amp IM PRN (17:22)
[2019-07-07] MEDS ORDERED: Butorphanol 1 MG/ML SDV IVPUSH PRN (17:22)
[2019-07-07] MEDS ORDERED: Water For Irrigation,Sterile 1,000 ML Container IRR PRN (17:22)
[2019-07-07] MEDS ORDERED: Tranexamic Acid 1,000 MG in Sodium Chloride 0.9% 100 ML IV PRN (17:22)
[2019-07-07] MEDS ORDERED: Misoprostol 200 MCG Tab PO PRN (17:22)
[2019-07-07] MEDS ORDERED: Sodium Chloride 0.9% 2.5 ML Syringe FLUSH PRN (17:22)
[2019-07-07] MEDS ORDERED: Oxytocin/0.9 % Sodium Chloride 30 UNIT/500 ML BAG IV SCH (17:30)
[2019-07-07] MEDS ORDERED: Lactated Ringers 1,000 ML IV SCH (17:30)
[2019-07-07] MEDS ORDERED: Misoprostol 200 MCG Tab VAG ONE (17:30)
[2019-07-07] MEDS ORDERED: Morphine 4 MG/ML Syringe IVPUSH PRN (17:49)
[2019-07-07] MEDS: ceFAZolin 2 GM in Premix Bag 1 BAG IV SCH (18:28)
[2019-07-07] MEDS ORDERED: Ketorolac 30 MG/ML SDV IVPUSH PRN (20:30)
[2019-07-07] MEDS ORDERED: Misoprostol 200 MCG Tab VAG PRN (21:30)
[2019-07-07] MEDS ORDERED: Ibuprofen 400 MG Tab PO PRN (22:10)
[2019-07-07] MEDS ORDERED: Lanolin 100% Cream 7 GM Tube TOP PRN (22:10)
[2019-07-07] MEDS ORDERED: Acetaminophen 500 MG Tab PO PRN ×2 (22:10)
[2019-07-07] MEDS ORDERED: Benzocaine/Menthol 20%-0.5% Spray 78 GM Cannister TOP PRN (22:10)
[2019-07-07] MEDS ORDERED: Witch Hazel Medicated Pads 40/Jar TOP PRN (22:10)
[2019-07-07] MEDS ORDERED: Docusate Sodium 100 MG Cap PO PRN (22:10)
[2019-07-07] MEDS ORDERED: Bisacodyl 10 MG Supp RECTAL PRN (22:10)
[2019-07-07] MEDS ORDERED: Ibuprofen 800 MG Tab PO PRN (22:10)
--- NOTE | 2019-07-07 23:29 | OR ---
SURGEON: José Manuel Dangelo MD DATE OF PROCEDURE: 07/07/2019 INDICATION FOR PROCEDURE: A 33-year-old G6, P3-0-2-3 at 21 week and 4 days with history of premature rupture of membranes at 18 weeks, presenting with cord prolapse. The patient had been expectantly managing the . She received a course of latency antibiotics. Today patient called reporting she noticed a prolapsed cord from the vagina which was confirmed after admission. She was found to be 3cm dilated. heart rate was noted on ultrasound. Discussed with her that with prolapsed cord demise is inevitable and she likely is developing chorioamnionitis. Reviewed management options and advised induction of labor. She was agreeable, and Cytotec was placed for induction. She progressed with Cytotec and I was called by the patient's nurse that the baby had delivered. PREOPERATIVE DIAGNOSES: 1. premature rupture of membranes at 18 weeks. 2. Cord prolapse. POSTOPERATIVE DIAGNOSES: 1. premature rupture of membranes at 18 weeks. 2. Cord prolapse. 3. Breech presentation. 4. Intrauterine demise. PROCEDURE PERFORMED: Normal spontaneous vaginal delivery. ANESTHESIA: None. ESTIMATED BLOOD LOSS: 850 mL. FINDINGS: Cord prolapse from the cervix which was 3cm dilated. Delivery of male fetus, no cardiac activity after delivery. Breech presentation. DESCRIPTION OF PROCEDURE: Upon my arrival, the fetus was delivered spontaneously in breech presentation. Umbilical cord was clamped and cut by patient's nurse. The baby was born without cardiac activity. There was moderate bleeding, about 350 mL. Gentle traction was applied on the umbilical cord to attempt to remove the placenta, however, placenta was still attached and umbilical cord had avulsed. She was given 400 mcg of Cytotec vaginally. After 1 hour, with fundal massage the placenta delivered and was found to be intact with another 400 mL of blood clots. Bimanual massage was performed and the uterus was firm. She was given a dose of Methergine IM with improvement in bleeding. She declines further testing including autopsy and cytogenetics. She was given care instructions. TIN / IMAN /[id number] MTDD
[2019-07-08] MEDS: ceFAZolin 2 GM in Premix Bag 1 BAG IV SCH ×2 (02:11→10:11)
--- NOTE | 2019-07-08 09:06 | PCM.PNPP ---
- General Info Date of Service: 07/08/19 Functional Status: Reports: Pain Controlled, Tolerating Diet, Ambulating, Urinating, Other (Bleeding light) - Review of Systems General: Reports: No Symptoms HEENT: Reports: No Symptoms Pulmonary: Reports: No Symptoms Cardiovascular: Reports: No Symptoms Gastrointestinal: Reports: No Symptoms Genitourinary: Reports: No Symptoms Musculoskeletal: Reports: No Symptoms Skin: Reports: No Symptoms Neurological: Reports: No Symptoms Psychiatric: Reports: No Symptoms - Patient Data Vital Signs - Most Recent: Last Vital Signs Temp 36.7 C 07/08/19 03:35 Pulse 71 07/08/19 03:35 Resp 16 07/08/19 03:35 BP 88/50 L 07/08/19 03:35 Pulse Ox Weight - Most Recent: 161 lb Lab Results - Last 24 Hours: Laboratory Results - last 24 hr 07/07/19 07/07/19 07/08/19 Range/Units 17:45 17:45 05:15 WBC 12.11 H (4.0-11.0) K/uL RBC 4.07 L (4.30-5.90) M/uL Hgb 12.1 10.8 L (12.0-16.0) g/dL Hct 36.8 33.0 L (36.0-46.0) % MCV 90.4 (80.0-98.0) fL MCH 29.7 (27.0-32.0) pg MCHC 32.9 (31.0-37.0) g/dL RDW Std Deviation 44.6 (28.0-62.0) fl RDW Coeff of Bia 14 (11.0-15.0) % Plt Count 195 (150-400) K/uL MPV 10.30 (7.40-12.00) fL Nucleated RBC % 0.0 /100WBC Nucleated RBCs # 0 K/uL Blood Type A NEGATIVE Antibody Screen NEGATIVE Screen (NEGATIVE) RhIG Candidate? Rhogam Indicated 07/08/19 Range/Units 05:15 WBC (4.0-11.0) K/uL RBC (4.30-5.90) M/uL Hgb (12.0-16.0) g/dL Hct (36.0-46.0) % MCV (80.0-98.0) fL MCH (27.0-32.0) pg MCHC (31.0-37.0) g/dL RDW Std Deviation (28.0-62.0) fl RDW Coeff of Bia (11.0-15.0) % Plt Count (150-400) K/uL MPV (7.40-12.00) fL Nucleated RBC % /100WBC Nucleated RBCs # K/uL Blood Type Antibody Screen Screen NEGATIVE (NEGATIVE) RhIG Candidate? YES Rhogam Indicated YES, BABY RH UNKNOWN H Med Orders - Current: Current Medications Acetaminophen (Tylenol Extra Strength) 500 mg PO Q4H PRN PRN Reason: Pain Acetaminophen (Tylenol Extra Strength) 1,000 mg PO Q4H PRN PRN Reason: Pain Benzocaine/Menthol (Dermoplast Pain Relief 20%-0.5% Olga) 78 gm TOP ASDIRECTED PRN PRN Reason: Perineal Comfort Measure Bisacodyl (Dulcolax) 10 mg RECTAL ONETIME PRN PRN Reason: Constipation Carboprost Tromethamine (Hemabate Ds) 250 mcg IM ASDIRECTED PRN PRN Reason: Post Hemorrhage Docusate Sodium (Colace) 100 mg PO BID PRN PRN Reason: Constipation Emollient Ointment (Lansinoh Hpa) 0 gm TOP ASDIRECTED PRN PRN Reason: Sore Nipples Tranexamic Acid 1,000 mg/ (Sodium Chloride) 110 mls @ 660 mls/hr IV ONETIME PRN PRN Reason: Bleeding Lactated Ringer's (Ringers, Lactated) 1,000 mls @ 150 mls/hr IV ASDIRECTED [facility] Last Admin: 07/07/19 18:28 Dose: 150 mls/hr Oxytocin/Sodium Chloride (Oxytocin 30 Unit/500 Ml-Ns) 30 unit in 500 mls @ 500 mls/hr IV TITRATE [facility] Cefazolin Sodium/Dextrose 2 gm (/ Premix) 50 mls @ 100 mls/hr IV Q8H [facility] Last Admin: 07/08/19 02:11 Dose: 100 mls/hr Ibuprofen (Motrin) 400 mg PO Q4H PRN PRN Reason: Pain Ibuprofen (Motrin) 800 mg PO Q6H PRN PRN Reason: Pain Last Admin: 07/07/19 22:48 Dose: 800 mg Ketorolac Tromethamine (Toradol) 30 mg IVPUSH Q6H PRN PRN Reason: Pain Stop: 07/12/19 20:31 Lidocaine HCl (Xylocaine 1%) 50 ml INJECT ONETIME PRN PRN Reason: Laceration repair Methylergonovine Maleate (Methergine) 0.2 mg IM ASDIRECTED PRN PRN Reason: Post Hemorrhage Last Admin: 07/07/19 22:42 Dose: 0.2 mg Misoprostol (Cytotec) 400 mcg VAG Q4H PRN PRN Reason: Other Last Admin: 07/07/19 21:51 Dose: 400 mcg Misoprostol (Cytotec) 200 mcg PO ONETIME PRN PRN Reason: Post Hemorrhage Morphine Sulfate (Morphine) 2 mg IVPUSH Q2H PRN PRN Reason: Abdominal Pain Last Admin: 07/07/19 19:30 Dose: 2 mg Sodium Chloride (Saline Flush) 10 ml FLUSH ASDIRECTED PRN PRN Reason: Keep Vein Open Sodium Chloride (Saline Flush) 2.5 ml FLUSH ASDIRECTED PRN PRN Reason: Keep Vein Open Sodium Chloride (Normal Saline) 10 ml IV ASDIRECTED PRN PRN Reason: IV Use Sterile Water (Sterile Water For Irrigation) 1,000 ml IRR ASDIRECTED PRN PRN Reason: delivery Witch Jeaneth (Tucks) 1 pad TOP ASDIRECTED PRN PRN Reason: comfort care Discontinued Medications Butorphanol Tartrate (Stadol) 1 mg IVPUSH Q1H PRN PRN Reason: Pain Misoprostol (Cytotec) 800 mcg VAG ONETIME ONE Stop: 07/07/19 17:31 Last Admin: 07/07/19 18:26 Dose: 800 mcg Nalbuphine HCl (Nubain) 10 mg IVPUSH Q1H PRN PRN Reason: Pain (severe 7-10) - Interaction Support Person: - Recovery Exam Fundal Tone: Firm Fundal Level: At Umbilicus Fundal Placement: Midline Lochia Amount: Small Lochia Color: Rubra/Red Perineum Description: Intact, Minimal Bruising/Swelling Episiotomy/Laceration: None Bladder Status: Nonpalpable Urinary Elimination: Voided - Exam General: Alert, Oriented, Cooperative, No Acute Distress HEENT: Pupils Equal, Pupils Reactive Neck: Supple, Trachea Midline, No JVD Lungs: Normal Respiratory Effort GI/Abdominal Exam: Soft, Non-Tender, No Organomegaly, No Distention Extremities: Normal Inspection, Normal Range of Motion, Non-Tender, No Pedal Edema Skin: Warm, Dry, Intact Neurological: No New Focal Deficit Psy/Mental Status: Alert, Normal Affect, Normal Mood - Problem List Review Problem List Initiated/Reviewed/Updated: Yes - My Orders Last 24 Hours: My Active Orders 07/07/19 16:29 Resuscitation Status Routine 07/07/19 17:22 Carboprost Tromethamine [Hemabate DS] 250 mcg IM ASDIRECTED PRN Lidocaine 1% [Xylocaine 1%] 50 ml INJECT ONETIME PRN Methylergonovine [Methergine] 0.2 mg IM ASDIRECTED PRN Sodium Chloride 0.9% [Normal Saline] 10 ml IV ASDIRECTED PRN Sodium Chloride 0.9% [Saline Flush] 10 ml FLUSH ASDIRECTED PRN Sodium Chloride 0.9% [Saline Flush] 2.5 ml FLUSH ASDIRECTED PRN Tranexamic Acid [Cyklokapron] 1,000 mg Sodium Chloride 0.9% [Normal Saline] 100 ml IV ONETIME Water For Irrigation,Sterile [Sterile Water for Irrigation] 1,000 ml IRR ASDIRECTED PRN miSOPROStoL [Cytotec] 200 mcg PO ONETIME PRN 07/07/19 17:23 Notify Provider [RC] PRN Peripheral IV Insertion Adult [OM.PC] Routine 07/07/19 17:30 Lactated Ringers [Ringers, Lactated] 1,000 ml IV ASDIRECTED Oxytocin/0.9 % Sodium Chloride [Oxytocin 30 Unit/500 ML-NS] 30 unit in 500 ml IV TITRATE 07/07/19 17:45 RPR (SYPHILIS SERO) W/ RFLX [REF] Routine 07/07/19 17:49 Morphine 2 mg IVPUSH Q2H PRN 07/07/19 18:00 ceFAZolin [Ancef] 2 gm Premix Bag 1 bag IV Q8H 07/07/19 20:30 Ketorolac [Toradol] 30 mg IVPUSH Q6H PRN 07/07/19 21:30 miSOPROStoL [Cytotec] 400 mcg VAG Q4H PRN 07/07/19 22:10 Patient Status [ADT] Routine May Shower [RC] ASDIRECTED Up ad Kinga [RC] ASDIRECTED Vital Signs [RC] PER UNIT ROUTINE Acetaminophen [Tylenol Extra Strength] 1,000 mg PO Q4H PRN Acetaminophen [Tylenol Extra Strength] 500 mg PO Q4H PRN Benzocaine/Menthol [Dermoplast Pain Relief 20%-0.5% Olga] 78 gm TOP ASDIRECTED PRN Docusate Sodium [Colace] 100 mg PO BID PRN Ibuprofen [Motrin] 400 mg PO Q4H PRN Ibuprofen [Motrin] 800 mg PO Q6H PRN Lanolin [Lansinoh HPA] See Dose Instructions TOP ASDIRECTED PRN bisacodyL [Dulcolax] 10 mg RECTAL ONETIME PRN witch Jeaneth [Tucks] 1 pad TOP ASDIRECTED PRN Assess Lochia [WOMSER] Per Unit Routine Assess Uterine Involution [WOMSER] Per Unit Routine Peripheral IV Discontinue [OM.PC] Routine 07/08/19 05:15 SCREEN [BBK] Routine RH IMMUNE GLOBULIN [BBK] Routine RHOGAM, [RHIG WORKUP, ] [BBK] Routine 07/08/19 Breakfast Regular Diet [DIET] - Assessment Assessment:: 33yo PPD1 s/p for PPROM with cord prolapse at 21w3d. Stable and recovering well. - Plan Plan:: - vitals stable, s/p ancef x24hrs, will discharge home with doxycycline for suspected chorioamnionitis - Hgb 10.8 this AM, denies s/s of anemia, continue iron supplements BID after discharge - tolerating PO and ambulating Stable for discharge home. Discussed care instructions, bleeding precautions and s/s of depression. Patient declines further diagnostic/cytogenetic testing and autopsy for the baby.
== END 2019-07-08 12:00 | disposition home or self-care (01) | DRG 805 ==
LOC: MW.OBCHECK 16:17 → MW.OB 16:17 → MW.OBCHECK 17:23 → MW.OB 17:23 → OBSVTOIN 22:10 → MW.OB 07-08 03:00
PROVIDERS: ADMIT Obstetrics & Gynecology; ATTEND Obstetrics & Gynecology
PROC: 10E0XZZ Delivery of Products of Conception, External Approach (ICD-10-PCS; principal; 2019-07-07)
DX: O42.012 Preterm premature rupture of membranes, onset of labor within 24 hours of rupture, second trimester (principal); O41.1220 Chorioamnionitis, second trimester, not applicable or unspecified; Z37.1 Single stillbirth; O69.0XX0 Labor and delivery complicated by prolapse of cord, not applicable or unspecified; O32.1XX0 Maternal care for breech presentation, not applicable or unspecified; Z79.899 Other long term (current) drug therapy; Z3A.21 21 weeks gestation of pregnancy
CPT/HCPCS: 36415; 85014; 85018; 85027; 85460; 86592; 86593; 86850; 86870; 86900; 86901; 88307; A9270-GY; J0690; J2210; J2270; J7120